=== PATIENT | female | born 1990 | race Caucasian/White ===

== ENCOUNTER 2020-08-15 08:00 | Outpatient (CLI) | payer BC | END 2020-08-15 08:01 | disposition home or self-care (01) | LOC: CSHULT 08:00 | PROVIDERS: ATTEND Internal Medicine Gastroenterology | DX: R94.5 Abnormal results of liver function studies (principal); K59.09 Other constipation; R16.0 Hepatomegaly, not elsewhere classified | CPT/HCPCS: 76705 ==